=== PATIENT | male | born 1995 | race Caucasian/White ===

== ENCOUNTER 2022-11-18 18:34 | Emergency (ER) | payer MEDICAID, SELFPAY ==
[2022-11-18 18:36] VITALS: BP 119/74; PULSE 67; RESP 20; TEMP 36.8; O2SAT 96; BMI 29.3
--- NOTE | 2022-11-18 18:46 | XR_ITS ---
The [place] [id number] Patient Name: LISA HANEY MRN: [id number] date: 1995 Sex: M Assigned Patient Location: ER Current Patient Location: Accession/Order Number: [id number] Exam Date: 11/18/2022 18:55 Report Date: 11/18/2022 20:01 At the request of: DEVONTE FRY Procedure: XR shoulder LT min 2V STUDY: XR shoulder LT min 2V, [id number] HISTORY: pain history of surgery and recurrent dislocation COMPARISON: Left shoulder x-ray 08/15/2022. FINDINGS/IMPRESSION: Similar flattening of the superolateral aspect of the humeral head most compatible with chronic Hill-Sachs fracture. No new osseous abnormality. The shoulder is in joint. No significant osseous degenerative changes. Electronically authenticated by: JAD BROOKS Date: 11/18/2022 20:01
--- NOTE | 2022-11-18 18:52 | ED_ITS ---
HPI - Extremity Injury (Upper) General Chief Complaint: Extremity Injury, Upper Stated Complaint: LT SHOULDER INJURY Time Seen by Provider: 11/18/22 18:46 Source: patient Mode of arrival: walk-in Limitations: no limitations History of Present Illness HPI narrative: Patient is a 27-year-old male presents to the Emergency Room with concerns of left shoulder pain. He has a history of shoulder surgery for recurrent d islocations back in January 2022. Dr. Siegel in [place]. Patient states he occasionally has seizures during his sleep and when he wakes up he will experience shoulder pain and dislocation. Patient states he has not had one since he has had corrective surgery on both shoulders. He awoke from sleep today with left shoulder pain and presumed that he may have had a seizure. Patient states he has taken his medication as prescribed. He denies striking his arm on any hard objects that would've been in his bed are close by the room. Patient noted soreness and painful range of motion prompting visit today with his prior history of multiple dislocations. Patient denies any nausea or vomiting, denies headache. Ambulance with a brisk steady gait and has no other concerns. Other Extremity Injury: Left: shoulder Place: Reports home Related Data Home Medications Medication Instructions Recorded Confirmed lamotrigine 200 mg tablet 400 mg PO Q12H 11/18/22 11/18/22 (Lamictal) Allergies Allergy/AdvReac Type Severity Reaction Status Date / Time No Known Drug Allergies Allergy Verified 11/18/22 18:38 Review of Systems ROS Constitutional Denies: fever or chills Eyes Denies: change in vision or blurry vision Ears, nose, mouth, and throat Denies: neck pain Cardiovascular Denies: chest pain or palpitations Respiratory Denies: shortness of breath or cough Gastrointestinal Denies: abdominal pain, nausea or vomiting Musculoskeletal Denies: back pain Integumentary/Breast Denies: rash Neurological Denies: headache Psychiatric Denies: anxiety Exam Narrative Exam Narrative: Nurses notes and vital signs reviewed and patient is not hypoxic. General: The patient appears well and in no apparent distress. Patient is resting comfortably on cart. Skin: Warm, dry, no pallor noted. Postoperative scars still left shoulder appear unremarkable. Head: Normocephalic, atraumatic Neck: Supple, trachea mid-line, no tenderness, no lymphadenopathy Eye: Pupils are equal, round and reactive to light, EOMI Ears, Nose, Mouth, and Throat: TM are clear, normal light reflex, oral mucosa is moist, no posterior oropharynx erythema or hypertrophy, uvula is mid-line Cardiovascular: Regular Rate and Rhythm Respiratory: Patient is in no distress, no accessory muscle use, lungs are clear to auscultation, no wheezing, rales or rhonchi. Chest Wall: no tenderness Back: non-tender, no CVA tenderness Musculoskeletal: normal ROM, no tenderness, no swelling, left shoulder specifically is with generalized soreness on palpation of the proximal humerus. No palpable deformity. Passive range of motion noted for pain with external rotation, deltoid strength is five over five with symmetric sensation bilaterally. Patient is able to touch his opposite shoulder without difficulty. GI: Normal bowel sounds, no tenderness to palpation, no masses appreciated. No rebound, guarding, or rigidity noted. Neurological: A&O x4 Psychiatric: Cooperative Constitutional Vital Signs - 24 hr 11/18/22 18:36 Temperature 98.2 F Pulse Rate [Monitor] 67 Respiratory Rate 20 Blood Pressure [Right Arm] 119/74 Pulse Oximetry 96 Oxygen Delivery Method Room Air Course Vital Signs Vital signs: Vital Signs Temperature 98.2 F 11/18/22 18:36 Pulse Rate 67 11/18/22 18:36 Respiratory Rate 20 11/18/22 18:36 Blood Pressure 119/74 11/18/22 18:36 Pulse Oximetry 96 11/18/22 18:36 Oxygen Delivery Method Room Air 11/18/22 18:36 Temperature 98.2 F 11/18/22 18:36 Pulse Rate 67 11/18/22 18:36 Respiratory Rate 20 11/18/22 18:36 Blood Pressure 119/74 11/18/22 18:36 Pulse Oximetry 96 11/18/22 18:36 Oxygen Delivery Method Room Air 11/18/22 18:36 MDM - Extremity Injury (Upper) MDM Narrative Medical decision making narrative: Patient had ice packs applied, patient was surprised at bedside with the ability for his range of motion states he may have slept on her shoulder on instead of dislocated it. Patient eleven x-ray performed, Motrin given for pain and ice packs applied. Recommend follow-up with his orthopedist for reevaluation given prior surgery. We discussed a seizure history, patient reports his compliance with his medication and seizure activity was not witnessed. Patient states he assumed as he woke up with shoulder pain given his past history. X-rays reviewed at the bedside, no evidence of dislocation, remote Hill-Sachs deformities noted from prior history of dislocation. The patient is to followup with Dr. Siegel in 3-5 days ( orthopedics) or to return to the emergency department should any of the signs or symptoms worsen or new symptoms develop. Patient had questions answered. The patient agrees with the following Diagnosis and Treatment plan and the patient will be discharged home. Discharge Plan Discharge Chief Complaint: Extremity Injury, Upper Clinical Impression: Acute pain of left shoulder Patient Disposition: Home, Self-Care Time of Disposition Decision: 19:14 Condition: Good Prescriptions / Home Meds: No Action lamotrigine [Lamictal] 200 mg tablet 400 mg PO Q12H Instructions: Shoulder Pain (ED) Additional Instructions: Please call Dr. Siegel for follow up this week: [facility] Orthopedics and Sports Medicine Stand Alone Forms: Portal Instructions Referrals: JESSE SMILEY [Primary Care Provider] - 1 week
[2022-11-18] MEDS: IBUPROFEN 600 MG TABLET PO (19:12)
== END 2022-11-18 19:31 | disposition home or self-care (01) ==
PROVIDERS: Emergency Provider Emergency Medicine; PCP Family Medicine
DX: M25.512 Pain in left shoulder (principal)
CPT/HCPCS: 73030; 99283

== ENCOUNTER 2023-01-17 14:55 | Emergency (ER) | payer MEDICAID, SELFPAY ==
[2023-01-17 15:11] VITALS: BP 124/80; PULSE 71; RESP 14; TEMP 36.7; O2SAT 97; BMI 29.8
--- NOTE | 2023-01-17 15:26 | XR_ITS ---
The [address] [address] Patient Name: LISA HANEY MRN: [id number] date: 1995 Sex: M Assigned Patient Location: ER Current Patient Location: ED.MAIN Accession/Order Number: [id number] Exam Date: 01/17/2023 15:34 Report Date: 01/17/2023 16:00 At the request of: JEREMY BRADSHAW Procedure: XR shoulder RT min 2V XR shoulder RT min 2V, 01/17/2023 3:34 PM EDT, OH001 INDICATION: right shoulder pain COMPARISON: Radiographs from 09/12/2020 TECHNIQUE: 3 images are submitted. FINDINGS: Internal fixation along the inferior aspect of the glenoid is again noted. The bones appear well mineralized. No acute fracture or subluxation is identified. Subchondral cystic changes are again seen along the superior aspect of the glenoid. Hill-Sachs deformity is again seen along the superolateral aspect of the humeral head. The visualized soft tissues appear unremarkable. XR/XR shoulder RT min 2V IMPRESSION: No acute traumatic abnormality or malalignment. No significant interval change is seen. Electronically authenticated by: CARL JEAN Date: 01/17/2023 16:00
--- NOTE | 2023-01-17 15:51 | ED_ITS ---
HPI - General Adult General Chief complaint: Extremity Injury, Upper Stated complaint: R ARM PAIN Time Seen by Provider: 01/17/23 14:58 Source: patient Mode of arrival: walk-in History of Present Illness HPI narrative: patient was lifting items when he felt 3 pops and pain in the right shoulder - he cannot remember the position of his right arm when he felt the pain. He has been taking ibuprofen for the pain. It feels better now than it did after the pops but he is concerned about the pain lingering. No functional deficit noted. He previously had surgery with Dr Solis at [facility] and had rotator cuff repair. Related Data Home Medications Medication Instructions Recorded Confirmed lamotrigine 200 mg tablet 400 mg PO Q12H 11/18/22 11/18/22 (Lamictal) Previous Rx's Medication Instructions Recorded nabumetone 750 mg tablet 750 mg PO BID PRN pain #20 tabs 01/17/23 Allergies Allergy/AdvReac Type Severity Reaction Status Date / Time No Known Drug Allergies Allergy Verified 11/18/22 18:38 Exam Narrative Exam Narrative: Nurses notes and vital signs reviewed and patient is not hypoxic. afebrile General: Well-appearing and in no apparent distress. Skin: Warm, dry, no pallor noted. Head: Normocephalic, atraumatic. Cardiovascular: normal peripheral perfusion Respiratory: No accessory muscle use or respiratory distress. Back: No midline thoracic vertebral tenderness. Musculoskeletal: right shoulder tenderness at the superior and anterior aspect near his incision scar. He has full and normal ROM with expected strength in right shoulder. no humerus or elbow tenderness, no upper extremity edema/swelling Neurological: A&O x4. No cranial nerve dysfunction observed. No truncal ataxia. Moves all extremities. Sensation intact. Psychiatric: Cooperative and interactive. Normal mood and affect. Constitutional Vital Signs, click to edit/add: Last Vital Signs Temp 98.0 F 01/17/23 15:11 Pulse 71 01/17/23 15:11 Resp 14 01/17/23 15:11 BP 124/80 01/17/23 15:11 Pulse Ox 97 01/17/23 15:11 O2 Del Method Room Air 01/17/23 15:19 Course Vital Signs Vital signs: Vital Signs Temperature 98.0 F 01/17/23 15:11 Pulse Rate 71 01/17/23 15:11 Respiratory Rate 14 01/17/23 15:11 Blood Pressure 124/80 01/17/23 15:11 Pulse Oximetry 97 01/17/23 15:11 Oxygen Delivery Method Room Air 01/17/23 15:11 Temperature 98.0 F 01/17/23 15:11 Pulse Rate 71 01/17/23 15:11 Respiratory Rate 14 01/17/23 15:11 Blood Pressure 124/80 01/17/23 15:11 Pulse Oximetry 97 01/17/23 15:11 Oxygen Delivery Method Room Air 01/17/23 15:19 Medical Decision Making MDM Narrative Medical decision making narrative: no acute fracture dislocation on x-rays of the right shoulder. The patient was informed of results and discharged home with prescription for Relafen for pain. Imaging Data xr shoulder: My impression: no acute fracture dislocation of the right shoulder Discharge Plan Discharge Chief Complaint: Extremity Injury, Upper Clinical Impression: Acute pain of right shoulder, Right shoulder strain Patient Disposition: Home, Self-Care Time of Disposition Decision: 15:56 Prescriptions / Home Meds: New nabumetone 750 mg tablet 750 mg PO BID PRN (Reason: pain) Qty: 20 0RF No Action lamotrigine [Lamictal] 200 mg tablet 400 mg PO Q12H Instructions: Shoulder Sprain (ED) Stand Alone Forms: Portal Instructions Referrals: JESSE SMILEY [Primary Care Provider] - 1 week Cheikh Waldrop MD [Physician] - 1 week
== END 2023-01-17 16:12 | disposition home or self-care (01) ==
PROVIDERS: Emergency Provider Emergency Medicine; PCP Family Medicine
DX: S46.911A Strain of unspecified muscle, fascia and tendon at shoulder and upper arm level, right arm, initial encounter (principal); M25.512 Pain in left shoulder; X50.9XXA Other and unspecified overexertion or strenuous movements or postures, initial encounter; Z79.899 Other long term (current) drug therapy
CPT/HCPCS: 73030; 99283

== ENCOUNTER 2023-02-24 21:37 | Emergency (ER) | payer MEDICAID, SELFPAY ==
[2023-02-24 21:40] VITALS: BP 111/80; PULSE 111; RESP 16; TEMP 36.5; O2SAT 95; BMI 30.7
--- NOTE | 2023-02-24 21:45 | XR_ITS ---
The [address] [address] Patient Name: LISA HANEY MRN: [id number] date: 1995 Sex: M Assigned Patient Location: ER Current Patient Location: Accession/Order Number: [id number] Exam Date: 02/24/2023 21:50 Report Date: 02/24/2023 22:36 At the request of: ADOLPH KUNZ Procedure: XR shoulder LT 1V EXAM: XR shoulder LT 1V HISTORY: pain; shoulder dislocated tonight but self reduced COMPARISON: [Shoulder x-ray dated 11/18/2021. TECHNIQUE: Single frontal view of the left shoulder are submitted for review. FINDINGS: No obvious acute fracture is seen. Joint alignment appears normal on this single frontal view of the left shoulder. Mild widening of the acromiohumeral humeral interval may be seen, which may represent a joint effusion. The left acromioclavicular joint appears intact and normally aligned. XR/XR shoulder LT 1V IMPRESSION: No obvious acute fracture is seen. Joint alignment appears normal on this single frontal view of the left shoulder. Mild widening of the acromiohumeral humeral interval may be seen, which may represent a joint effusion. Electronically authenticated by: MOIZ GARCIA Date: 02/24/2023 22:36
--- NOTE | 2023-02-24 21:46 | ED.UPPEXIN1 ---
HPI - Extremity Injury (Upper) General Chief Complaint: Extremity Injury, Upper Stated Complaint: Shoulder Dislocation, Left Time Seen by Provider: 02/24/23 21:43 Source: patient Mode of arrival: walk-in History of Present Illness HPI narrative: 27-year-old male presents for left shoulder pain. He states he rolled over in his shoulder dislocated but then it popped back in place. He has dislocated this shoulder several times and sees an orthopedist. No weakness or numbness. The pain is moderate. Related Data Home Medications Medication Instructions Recorded Confirmed lamotrigine 200 mg tablet 400 mg PO Q12H 11/18/22 11/18/22 (Lamictal) Previous Rx's Medication Instructions Recorded nabumetone 750 mg tablet 750 mg PO BID PRN pain #20 tabs 01/17/23 Allergies Allergy/AdvReac Type Severity Reaction Status Date / Time No Known Drug Allergies Allergy Verified 11/18/22 18:38 Review of Systems ROS Narrative A ten point review of systems is negative except as noted above. PFSH PFSH Social History Smoking status: Former smoker Exam Narrative Exam Narrative: Nurses note and vital signs reviewed and patient is not hypoxic. General: The patient appears well and in no apparent distress. Patient is resting comfortably on cart. Skin: Warm, dry, no pallor noted. There is no rash noted. Head: Normocephalic, atraumatic Eye: Normal conjunctiva, no drainage Ears, Nose, Mouth, and Throat: oral mucosa is moist. Nares patent. Cardiovascular: Regular Rate and Rhythm Respiratory: Patient is in no distress, no accessory muscle use, lungs are clear to auscultation, no wheezing, rales or rhonchi Back: non-tender GI: nontender Musculoskeletal: no deformity of the left shoulder. Left elbow and wrist are nontender. Radial pulse 2+ and fingers have full range of motion. Neurological: A&O, normal speech Psychiatric: Cooperative Constitutional Vital Signs, click to edit/add: Last Vital Signs Temp 97.7 F 02/24/23 21:40 Pulse 111 H 02/24/23 21:40 Resp 16 02/24/23 21:40 BP 111/80 02/24/23 21:40 Pulse Ox 95 02/24/23 21:40 O2 Del Method Room Air 02/24/23 21:40 Course Vital Signs Vital signs: Vital Signs Temperature 97.7 F 10/01/23 21:40 Pulse Rate 111 H 02/24/23 21:40 Respiratory Rate 16 02/24/23 21:40 Blood Pressure 111/80 02/24/23 21:40 Pulse Oximetry 95 02/24/23 21:40 Oxygen Delivery Method Room Air 02/24/23 21:40 Temperature 97.7 F 02/24/23 21:40 Pulse Rate 111 H 02/24/23 21:40 Respiratory Rate 16 02/24/23 21:40 Blood Pressure 111/80 02/24/23 21:40 Pulse Oximetry 95 02/24/23 21:40 Oxygen Delivery Method Room Air 02/24/23 21:40 MDM - Extremity Injury (Upper) MDM Narrative Medical decision making narrative: x-ray of the shoulder on my interpretation shows no acute findings, no dislocation. Sling applied, application checked by me and found to be appropriate, he is neurovascularly intact and he'll call his orthopedist in the morning. Treatment diagnosis and follow-up were discussed with the patient. Differential Diagnosis Differential diagnosis: Likely other (shoulder sprain, fracture, dislocation) Imaging Data left shoulder x-ray: My impression: no acute findings Discharge Plan Discharge Chief Complaint: Extremity Injury, Upper Clinical Impression: Acute pain of left shoulder Patient Disposition: Home, Self-Care Time of Disposition Decision: 22:07 Mode of Transportation: Private Vehicle Prescriptions / Home Meds: No Action lamotrigine [Lamictal] 200 mg tablet 400 mg PO Q12H nabumetone 750 mg tablet 750 mg PO BID PRN (Reason: pain) Qty: 20 0RF Instructions: Shoulder Pain (ED) Additional Instructions: call your orthopedist in the morning Stand Alone Forms: Portal Instructions Referrals: JESSE SMILEY [Primary Care Provider] - 1 week
--- NOTE | 2023-02-24 22:18 | PC.NURSE ---
Shoulder popped back in on way back t cart. PMS intact. Placed in sling for comfort.
== END 2023-02-24 22:32 | disposition home or self-care (01) ==
PROVIDERS: Emergency Provider Emergency Medicine; PCP Family Medicine
DX: M25.512 Pain in left shoulder (principal); Z79.899 Other long term (current) drug therapy; Z87.891 Personal history of nicotine dependence
CPT/HCPCS: 73020; 99283

== ENCOUNTER 2023-02-25 11:36 | Emergency (ER) | payer MEDICAID, SELFPAY ==
[2023-02-25 11:49] VITALS: BP 113/81; PULSE 88; RESP 18; TEMP 36.1; O2SAT 96; BMI 30.7
--- NOTE | 2023-02-25 12:49 | XR_ITS ---
The [address] [address] Patient Name: LISA HANEY MRN: [id number] date: 1995 Sex: M Assigned Patient Location: ER Current Patient Location: ER Accession/Order Number: [id number] Exam Date: 02/25/2023 12:57 Report Date: 02/25/2023 13:25 At the request of: CHALINO LU Procedure: XR shoulder RT min 2V PROCEDURE: XR shoulder RT 1V COMPARISON: 01/17/2023 HISTORY: shoulder FINDINGS: BONES:No acute fracture or dislocation. 2 screws inferior glenoid, stable. SOFT TISSUES:Negative. No visible soft tissue swelling. EFFUSION:None visible. OTHER: Limited single frontal portable projection XR/XR shoulder RT min 2V IMPRESSION: Limited single projection, no acute abnormality Electronically authenticated by: UCHE SANABRIA Date: 02/25/2023 13:25
--- NOTE | 2023-02-25 13:01 | ED_ITS ---
HPI - General Adult General Chief complaint: Extremity Injury, Upper Stated complaint: right arm pain, non-traumatic Time Seen by Provider: 02/25/23 12:35 Source: patient Mode of arrival: walk-in History of Present Illness HPI narrative: Patient is a 27-year-old male who is presenting to the Emergency Room with chief complaint right shoulder pain. Patient was here last evening, was seen and evaluated by evening physician Dr Arevalo. Patient was complaining of a shoulder pain last night, he is concerned about possible dislocation after seizure. Patient has bilateral history of shoulder dislocations, also has had a previous right shoulder surgery. Patient was not having the right shoulder pain last evening like he is today. Patient stated he went home last evening, woke up this morning was having right shoulder pain, not left shoulder pain. Patient had a left shoulder x-ray last evening. Patient has an appointment with his orthopedic surgeon this , Dr. Frey. Patient did not take Tylenol Motrin for his pain this morning. . All systems are negative except as noted/marked. All systems reviewed and otherwise negative. . Nurses note and vital signs reviewed and patient is not hypoxic. General: The patient appears well and in no apparent distress. Patient is resting comfortably on cart. Patient is not toxic, lethargic, or listless Skin: Warm, dry, no pallor noted. There is no rash noted. No petechiae, purp ura. Head: Normocephalic, atraumatic Eye: Normal conjunctiva, no drainage, EOMI. PERRL Ears, Nose, Mouth, and Throat: oral mucosa is moist. Nares patent. Mouth without vesicles. Cardiovascular: Regular Rate and Rhythm, no murmur, gallop, rub Respiratory: Patient is in no distress, no accessory muscle use, lungs are clear to auscultation, no wheezing, rales or rhonchi Back: non-tender, no CVA tenderness bilaterally to percussion. No CT LS midline pain GI: soft, no tenderness to palpation, no masses appreciated. No rebound, guarding, or rigidity noted. No flank pain bilateral, No distention Musculoskeletal: Patient has full range of motion of all of the extremities Except to the right shoulder. Patient does have flexion and extension of the right shoulder with moderate pain, patient was abduct right shoulder up to approximately 90 degrees with moderate pain. Patient does not appear to have any sulcus sign, no obvious signs of fracture dislocation, x-ray will be done. Patient is guarded with range of motion of right shoulder secondary to pain. no motor, sensory, or focal neurological deficits Neurological: A&O x3, normal speech Psychiatric: Cooperative Related Data Home Medications Medication Instructions Recorded Confirmed lamotrigine 200 mg tablet 400 mg PO Q12H 11/18/22 02/25/23 (Lamictal) Allergies Allergy/AdvReac Type Severity Reaction Status Date / Time No Known Drug Allergies Allergy Verified 02/25/23 11:52 PFSH PFSH Social History Smoking status: Former smoker Exam Constitutional Vital Signs, click to edit/add: Last Vital Signs Temp 97.0 F L 02/25/23 11:49 Pulse 88 02/25/23 13:07 Resp 18 02/25/23 13:07 BP 118/64 02/25/23 13:07 Pulse Ox 98 02/25/23 13:07 O2 Del Method Room Air 02/25/23 11:49 Course Vital Signs Vital signs: Vital Signs Temperature 97.0 F L 02/25/23 11:49 Pulse Rate 88 02/25/23 11:49 Respiratory Rate 18 02/25/23 11:49 Blood Pressure 113/81 02/25/23 11:49 Pulse Oximetry 96 02/25/23 11:49 Oxygen Delivery Method Room Air 02/25/23 11:49 Temperature 97.0 F L 02/25/23 11:49 Pulse Rate 88 02/25/23 13:07 Respiratory Rate 18 02/25/23 13:07 Blood Pressure 118/64 02/25/23 13:07 Pulse Oximetry 98 02/25/23 13:07 Oxygen Delivery Method Room Air 02/25/23 11:49 Medical Decision Making [facility] Narrative Medical decision making narrative: Patient initially had 1 view x-ray that showed no obvious fracture, dislocation, screws are intact. Patient had a 2nd one view x-ray, lab review that. No signs of dislocation or acute abnormality. Patient had ice applied. Patient did not take any Motrin or Tylenol home because he did not think that would work. Patient works at [employer], he did not go to work last night or tonight. Patient is not going to be given off work, he was given a work note for restrictions until he follows of his orthopedic surgeon on in Dr. Tk Lorenzo. Patient was instructed to continue using ice 20 minutes on, 20 minutes off. No indication for a sling. Patient can follow up with PCP as needed as well, no questions at discharge. Discharge Plan Discharge Chief Complaint: Extremity Injury, Upper Clinical Impression: Pain in right shoulder Patient Disposition: Home, Self-Care Time of Disposition Decision: 13:24 Condition: Fair Prescriptions / Home Meds: No Action lamotrigine [Lamictal] 200 mg tablet 400 mg PO Q12H Instructions: P.R.I.C.E. Treatment (ED), Shoulder Pain (ED) Stand Alone Forms: Work/School Release, Portal Instructions Referrals: JESSE SMILEY [Primary Care Provider] - 1 week
[2023-02-25 13:07] VITALS: BP 118/64; PULSE 88; RESP 18; O2SAT 98
[2023-02-25 13:35] VITALS: BP 126/88; PULSE 89; RESP 18; O2SAT 98
== END 2023-02-25 13:37 | disposition home or self-care (01) ==
PROVIDERS: Emergency Provider Emergency Medicine; PCP Family Medicine
DX: M25.511 Pain in right shoulder (principal); Z79.899 Other long term (current) drug therapy; Z87.891 Personal history of nicotine dependence
CPT/HCPCS: 73030; 99283

== ENCOUNTER 2023-02-26 17:17 | Emergency (ER) | payer MEDICAID, SELFPAY ==
[2023-02-26 17:21] VITALS: BP 89/68; PULSE 92; RESP 18; TEMP 36.8; O2SAT 95; BMI 30.7
--- NOTE | 2023-02-26 17:24 | XR_ITS ---
The [address] [address] Patient Name: LISA HANEY MRN: [id number] date: 1995 Sex: M Assigned Patient Location: ER Current Patient Location: ER Accession/Order Number: [id number] Exam Date: 02/26/2023 17:35 Report Date: 02/26/2023 17:52 At the request of: ADOLPH KUNZ Procedure: XR shoulder LT 1V EXAM: XR shoulder LT 1V HISTORY: pain, hx of dislocations COMPARISON: X-rays 02/24/2023 TECHNIQUE: Single view FINDINGS: IMPRESSION: Again demonstrated is the displaced intra-articular fragment lying within the anterior axillary pouch. Speed-Sachs fracture of the humeral head. No visualized additional abnormality. Electronically authenticated by: UCHE TAO Date: 02/26/2023 17:52
--- NOTE | 2023-02-26 17:26 | ED_ITS ---
HPI - Extremity Injury (Upper) General Chief Complaint: Extremity Injury, Upper Stated Complaint: Shoulder Injury Time Seen by Provider: 02/26/23 17:18 Source: patient Mode of arrival: walk-in Limitations: no limitations History of Present Illness HPI narrative: 27-year-old male presents for left shoulder pain. He states he was sleeping and it popped. He was seen here yesterday for the same issue in the right shoulder and the day before yesterday in the left shoulder. Both previous x-rays are negative. He reports that he has a history of dislocations and he has an appointment with his orthopedist in two days. The pain is moderate and worse if he tries to move his arm. There was no trauma such as a fall. Related Data Home Medications Medication Instructions Recorded Confirmed lamotrigine 200 mg tablet 400 mg PO Q12H 11/18/22 02/25/23 (Lamictal) Allergies Allergy/AdvReac Type Severity Reaction Status Date / Time No Known Drug Allergies Allergy Verified 02/25/23 11:52 Review of Systems ROS Narrative A ten point review of systems is negative except as noted above. PFSH PFSH Social History Smoking status: Never smoker Exam Narrative Exam Narrative: Nurses note and vital signs reviewed and patient is not hypoxic. General: The patient appears in no apparent distress. Patient is resting comfortably on cart. Skin: Warm, dry, no pallor noted. There is no rash noted. Head: Normocephalic, atraumatic Eye: Normal conjunctiva, no drainage Ears, Nose, Mouth, and Throat: oral mucosa is moist. Nares patent. Cardiovascular: Regular Rate and Rhythm Respiratory: Patient is in no distress, no accessory muscle use, lungs are clear to auscultation, no wheezing, rales or rhonchi Back: non-tender GI: soft and nontender Musculoskeletal: no obvious deformity in the left shoulder. Skin intact. Left elbow and left wrist nontender. Radial pulse 2+ and fingers have full range of motion. Sensation intact over the deltoid area. Neurological: A&O, normal speech Psychiatric: Cooperative Constitutional Vital Signs, click to edit/add: Last Vital Signs Temp 98.2 F 02/26/23 17:21 Pulse 92 H 02/26/23 17:21 Resp 18 02/26/23 17:21 BP 89/68 02/26/23 17:21 Pulse Ox 95 02/26/23 17:21 O2 Del Method Room Air 02/26/23 17:21 Course Vital Signs Vital signs: Vital Signs Temperature 98.2 F 02/26/23 17:21 Pulse Rate 92 H 02/26/23 17:21 Respiratory Rate 18 02/26/23 17:21 Blood Pressure 89/68 02/26/23 17:21 Pulse Oximetry 95 02/26/23 17:21 Oxygen Delivery Method Room Air 02/26/23 17:21 Temperature 98.2 F 02/26/23 17:21 Pulse Rate 92 H 02/26/23 17:21 Respiratory Rate 18 02/26/23 17:21 Blood Pressure 89/68 02/26/23 17:21 Pulse Oximetry 95 02/26/23 17:21 Oxygen Delivery Method Room Air 02/26/23 17:21 MDM - Extremity Injury (Upper) MDM Narrative Medical decision making narrative: x-ray of the shoulder per radiologist shows no dislocation and it does show chronic findings. Sling applied. Application checked by me and found to be appropriate, he is neurovascularly intact. He was instructed to wear the sling until he sees his orthopedist the day after tomorrow and he's put on limited work duty. Treatment diagnosis and follow-up were discussed with the patient. Differential Diagnosis Differential diagnosis: Likely other (shoulder strain, shoulder dislocation, shoulder fracture) Imaging Data left shoulder x-ray: Radiologist's impression: Procedure: XR shoulder LT 1V EXAM: XR shoulder LT 1V HISTORY: pain, hx of dislocations COMPARISON: X-rays 02/24/2023 TECHNIQUE: Single view FINDINGS: IMPRESSION: Again demonstrated is the displaced intra-articular fragment lying within the anterior axillary pouch. [place]-Sachs fracture of the humeral head. No visualized additional abnormality. Electronically authenticated by: UCHE TAO Date: 02/26/2023 17:52 Discharge Plan Discharge Chief Complaint: Extremity Injury, Upper Clinical Impression: Acute pain of left shoulder Patient Disposition: Home, Self-Care Time of Disposition Decision: 17:59 Condition: Good Mode of Transportation: Private Vehicle Prescriptions / Home Meds: No Action lamotrigine [Lamictal] 200 mg tablet 400 mg PO Q12H Instructions: Shoulder Pain (ED) Additional Instructions: See your orthopedist at the appointment in two days. Wear the sling until you see him. Stand Alone Forms: Portal Instructions Referrals: JESSE SMILEY [Primary Care Provider] - 1 week
--- NOTE | 2023-02-26 17:30 | PC.NURSE ---
pt presents to ED because patient states that he was sleeping and around 2:30pm and he had a seizure in his sleep and believes he dislocated left shoulder. pt states it is too painful to move his left arm. pt does have history of seizures and takes lamictal for his seizures.
--- NOTE | 2023-02-26 17:44 | XR_ITS ---
The [address] [address] Patient Name: LISA HANEY MRN: [id number] date: 1995 Sex: M Assigned Patient Location: ER Current Patient Location: Accession/Order Number: [id number] Exam Date: 02/26/2023 17:48 Report Date: 02/26/2023 18:16 At the request of: ADOLPH KUNZ Procedure: XR shoulder LT 1V EXAM: XR shoulder LT 1V HISTORY: pain COMPARISON: X-rays at 5:34 PM. TECHNIQUE: Single view FINDINGS: IMPRESSION: This is an additional sequence in addition to the single image performed earlier. The patient should not be charged for an additional study. No visualized acute fracture, dislocation or subluxation. Electronically authenticated by: UCHE TAO Date: 02/26/2023 18:16
== END 2023-02-26 18:15 | disposition home or self-care (01) ==
PROVIDERS: Emergency Provider Emergency Medicine; PCP Family Medicine
DX: M25.512 Pain in left shoulder (principal); Z79.899 Other long term (current) drug therapy
CPT/HCPCS: 73020; 99283

== ENCOUNTER 2023-03-07 20:16 | Emergency (ER) | payer MEDICAID, SELFPAY ==
[2023-03-07 20:22] VITALS: BP 124/81; PULSE 74; RESP 18; TEMP 36.6; O2SAT 99; BMI 30.7
--- NOTE | 2023-03-07 21:00 | US_ITS ---
The [address] [address] Patient Name: LISA HANEY MRN: [id number] date: 1995 Sex: M Assigned Patient Location: ER Current Patient Location: ER Accession/Order Number: [id number] Exam Date: 03/07/2023 21:10 Report Date: 03/07/2023 21:46 At the request of: ALEX PARKS Procedure: US scrotum EXAM: Scrotal ultrasound CLINICAL INDICATION: torsion. TECHNIQUE: The scrotal ultrasound was obtained with grayscale and color Doppler imaging as well as waveform analysis. FINDINGS: Testicles: Bilateral testicles are homogenous in echotexture. No mass or microlithiasis evident. The right testicle measures 4.1 x 3.1 x 2.1 cm. The left testicle measures 3.8 x 3.0 x 2.3 cm. Extratesticular findings: No hydrocele on either side. No epididymal enlargement or mass. 9 mm left epididymal cyst. Testicular doppler: Symmetric color flow is visualized in both testicles. Arterial and venous waveforms are detected bilaterally. No asymmetric epididymal hyperemia. Asymmetry in the pampiniform plexus veins, larger on the right with a borderline right varicocele. US/US scrotum IMPRESSION: 1. No evidence of testicular torsion or epididymoorchitis. 2. Borderline right varicocele. An isolated right-sided varicocele can occasionally indicate retroperitoneal mass or pathology. Consider follow-up ultrasound to confirm this finding and if persistent then consider further evaluation with a abdomen pelvis CT or MRI. Electronically authenticated by: AUGUSTUS LOVELACE Date: 03/07/2023 21:46
--- NOTE | 2023-03-07 22:23 | PC.NURSE ---
patient having pain in left testicle, pain is constant but intermittently worsens. patient is having nausea and vomiting.
[2023-03-07 22:24] VITALS: BP 131/88; RESP 16; O2SAT 96
[2023-03-07] MEDS: ONDANSETRON 4 MG RAPDIS TABLET SL (23:40)
[2023-03-07] MEDS: KETOROLAC TROMETHAMINE 60 MG/2 ML VIAL IM (23:43)
[2023-03-07 23:47] LABS: Basophils Absolute Auto 0.1 10^3/uL (0.0-0.1); Basophils Percent Auto 0.8 % (0.2-2.0); Eosinophils Absolute Auto 0.1 10^3/uL (0.0-0.7); Eosinophils Percent Auto 0.7 % (0.9-7.0); Hematocrit 48.9 % (42.0-54.0); Immature Granulocytes Abs Auto 0.08 10^3/uL (0.00-0.03); Immature Granulocytes Pct Auto 0.5 % (0.0-0.5); Lymphocytes Absolute Auto 1.4 10^3/uL (1.2-3.8); Lymphocytes Percent Auto 9.4 % (20.5-60.0); Mean Corpuscular HGB Conc 34.8 g/dL (29.9-35.2); Mean Corpuscular Hemoglobin 30.6 pg (25.9-34.0); Mean Corpuscular Volume 87.9 fL (80.0-94.0); Mean Platelet Volume 10.3 fL (9.5-13.5); Monocytes Absolute Auto 0.6 10^3/uL (0.3-0.8); Neutrophils Absolute Auto 12.8 10^3/uL (1.4-6.5); Neutrophils Percent Auto 84.6 % (43.0-75.0); Platelet Count 270 10^3/uL (150-450); Red Blood Count 5.56 10^6/uL (4.70-6.10); Red Cell Distribution Width 12.3 % (11.0-15.0); White Blood Count 15.2 10^3/uL (4.0-11.0)
[2023-03-08 00:03] LABS: Alanine Aminotransferase 35 U/L (16-63); Albumin Globulin Ratio 1.2; Albumin Level 4.7 g/dL (3.4-5.0); Alkaline Phosphatase 123 U/L (46-116); Anion Gap 10.4; Aspartate Amino Transferase 26 U/L (15-37); BUN Creatinine Ratio 12.2; Bilirubin Total 1.1 mg/dL (0.2-1.0); Calcium 9.5 mg/dL (8.5-10.1); Carbon Dioxide 28.7 mmol/L (21.0-32.0); Chloride 103 mmol/L (98-107); Estimated GFR (African America >60 (>=60); Estimated GFR (Non-African Ame >60 (>=60); Globulin 3.9 g/dL; Glucose 154 mg/dL (74-106); Potassium 4.1 mmol/L (3.5-5.1); Sodium 138 mmol/L (136-145); Total Protein 8.6 g/dL (6.4-8.2)
[2023-03-08 01:44] LABS: Bilirubin Urine MODERATE (NEGATIVE); Blood Urine LARGE (NEGATIVE); Clarity Urine CLEAR (CLEAR); Color Urine DK. YELLOW (YELLOW); Glucose Urine UA NEGATIVE (NEGATIVE); Ketones Urine 40 mg/dL (NEGATIVE); Leukocyte Esterase Urine NEGATIVE (NEGATIVE); Nitrite Urine NEGATIVE (NEGATIVE); Protein Urine 100 mg/dL (NEG/TRACE); Specific Gravity Urine 1.025 (1.005-1.025); pH Urine 5.5 (5.0-9.0)
[2023-03-08 01:46] LABS: Urine Microscopic Indicated YES
[2023-03-08 01:53] LABS: Bacteria Urine SMALL #/HPF (NONE SEEN); Cast Seen? NONE SEEN #/LPF (NONE SEEN); Crystals Seen? None Seen #/HPF (None Seen); Mucus Urine SMALL (NONE SEEN); Squamous Epithelial Cell Urine RARE #/LPF (NONE/RARE); Urine Culture Indicated YES
--- NOTE | 2023-03-08 02:30 | CT_ITS ---
The [place] [id number] Patient Name: LISA HANEY MRN: [id number] date: 1995 Sex: M Assigned Patient Location: ER Current Patient Location: ER Accession/Order Number: [id number] Exam Date: 03/08/2023 03:00 Report Date: 03/08/2023 03:49 At the request of: ALEX PARKS Procedure: CT abdomen pelvis wo con EXAM: CT abdomen pelvis wo con HISTORY: pain COMPARISON: 09/15/2020 TECHNIQUE: CT of abdomen and pelvis without intravenous contrast. FINDINGS: Limited evaluation of the viscera/organs and vasculature without intravenous contrast. TUBES AND IMPLANTS: None. LOWER CHEST: Unremarkable ABDOMEN and PELVIS ABDOMINAL WALL AND SOFT TISSUES: Unremarkable. BONES: No suspicious lesions. ARTERIES: Incompletely evaluated. VEINS: Incompletely evaluated. LYMPH NODES: Unremarkable. PERITONEUM/ RETROPERITONEUM: Unremarkable. BOWEL: No obstruction APPENDIX: Unremarkable LIVER: Redemonstration of the left lobe hypodensity which appears similar in size compared to 09/15/2020 GALLBLADDER: Unremarkable. BILE DUCTS: Not dilated SPLEEN: Unremarkable. PANCREAS: Unremarkable. ADRENALS: Unremarkable. KIDNEYS/ URETERS: Bilateral nonobstructing renal calculi, measuring 5 millimeters on the right and 2 millimeters on the left REPRODUCTIVE ORGANS: Unremarkable URINARY BLADDER: Mild diffuse wall thickening CT/CT abdomen pelvis wo con IMPRESSION: Bilateral nonobstructing renal calculi Mild diffuse wall thickening of the bladder concerning for cystitis. Unremarkable appendix. Electronically authenticated by: YASMINE RIVERA Date: 03/08/2023 03:49
[2023-03-08 03:08] LABS: Lactate/Lactic Acid 1.8 mmol/L (0.4-2.0)
[2023-03-08] MEDS: CEFTRIAXONE 1,000 MG in 0.9 % SODIUM CHLORIDE 50 ML 100 MG IV (03:33)
[2023-03-08] MEDS: 0.9 % SODIUM CHLORIDE 1,000 ML 999 ML IV (03:33)
[2023-03-08] MEDS: KETOROLAC TROMETHAMINE 30 MG/ML VIAL IVP (03:35)
[2023-03-08] MEDS: ONDANSETRON PF 4 MG/2 ML VIAL IV (03:35)
--- NOTE | 2023-03-08 04:09 | ED.MALEGU1 ---
HPI - Male Genitourinary General Chief complaint: Urogenital-Male Stated complaint: testicle pain Time Seen by Provider: 03/07/23 21:00 Source: patient Mode of arrival: walk-in Limitations: no limitations History of Present Illness HPI Narrative: patient presents complaining of scrotal pain. states pain of his testicle associated with nausea and vomiting. Started a few hours ago. No fever or dysuria. Does have history of kidney stones. No injury or trauma. no testicle swelling MD Complaint: Reports testicle pain Related Data Home Medications Medication Instructions Recorded Confirmed lamotrigine 200 mg tablet 400 mg PO Q12H 11/18/22 03/07/23 (Lamictal) Allergies Allergy/AdvReac Type Severity Reaction Status Date / Time No Known Drug Allergies Allergy Verified 03/07/23 20:28 Review of Systems ROS Status of ROS 10 or more systems reviewed and unremarkable except as noted in history and below PFSH PFS Social History Smoking status: Never smoker Exam Constitutional Vital Signs, click to edit/add: Last Vital Signs Temp 98 F 03/07/23 20:22 Pulse 74 03/07/23 20:22 Resp 16 03/07/23 22:24 BP 131/88 03/07/23 22:24 Pulse Ox 96 03/07/23 22:24 O2 Del Method Room Air 03/07/23 22:24 Common normals: no apparent distress, average body habitus, oriented x3, healthy appearing, alert and well nourished Eye Common normals: EOMs intact bilaterally and conjunctivae normal Respiratory Common normals: normal respiratory effort, no retractions, no use of accessory muscles and clear to auscultation bilaterally Cardio Common normals: regular rate, regular rhythm, S1 normal heart sound and S2 normal heart sound GI Common normals: Normal to inspection, nondistended, normoactive bowel sounds present, soft to palpation and non-tender Penis: normal penis Scrotum: testes descended bilaterally and cremasteric reflex present Other: no testicle swelling or tenderness Extremity Common normals: normal to inspection and full ROM Neuro Common normals: oriented x3, CN's II-XII intact bilaterally, moves all extremities, no focal motor deficits and no sensory deficits noted Psych Appearance: grossly normal Course Vital Signs Vital signs: Vital Signs Temperature 98 F 03/07/23 20:22 Pulse Rate 74 03/07/23 20:22 Respiratory Rate 18 03/07/23 20:22 Blood Pressure 124/81 03/07/23 20:22 Pulse Oximetry 99 03/07/23 20:22 Oxygen Delivery Method Room Air 03/07/23 20:22 Temperature 98 F 03/07/23 20:22 Pulse Rate 74 03/07/23 20:22 Respiratory Rate 16 03/07/23 22:24 Blood Pressure 131/88 03/07/23 22:24 Pulse Oximetry 96 03/07/23 22:24 Oxygen Delivery Method Room Air 03/07/23 22:24 MDM - Male Genitourinary MDM Narrative Medical decision making narrative: patient presents with testicle pain. exam of testes neg. Ultrasound of testes with no evidence of torsion or epididymitis. His abdominal exam was neg. Patient's pain improved after Toradol but then returned with more vomiting. UA with hematuria and few WBCs. WBC elevated. CT without evidence of ureteral stones but findings c/w cystitis. Patient hydrated and treated again with Toradol and zofran. Also given dose of Rocephin. He is feeling better. Discharged home with Bactrim ds, toradol and pyridium Lab Data Labs: Lab Results 03/07/23 03/07/23 03/08/23 Range/Units 01:40 23:30 02:30 WBC 15.2 H (4.0-11.0) 10^3/uL RBC 5.56 (4.70-6.10) 10^6/uL Hgb 17.0 (14.0-18.0) g/dL Hct 48.9 (42.0-54.0) % MCV 87.9 (80.0-94.0) fL MCH 30.6 (25.9-34.0) pg MCHC 34.8 (29.9-35.2) g/dL RDW 12.3 (11.0-15.0) % Plt Count 270 (150-450) 10^3/uL MPV 10.3 (9.5-13.5) fL Neut % (Auto) 84.6 H (43.0-75.0) % Lymph % (Auto) 9.4 L (20.5-60.0) % [place] % (Auto) 4.0 (1.7-12.0) % Eos % (Auto) 0.7 L (0.9-7.0) % Baso % (Auto) 0.8 (0.2-2.0) % Neut # (Auto) 12.8 H (1.4-6.5) 10^3/uL Lymph # (Auto) 1.4 (1.2-3.8) 10^3/uL [place] # (Auto) 0.6 (0.3-0.8) 10^3/uL Eos # (Auto) 0.1 (0.0-0.7) 10^3/uL Baso # (Auto) 0.1 (0.0-0.1) 10^3/uL Abs Immat Gran (auto) 0.08 H (0.00-0.03) 10^3/uL Imm/Tot Granulo (auto) 0.5 (0.0-0.5) % Sodium 138 (136-145) mmol/L Potassium 4.1 (3.5-5.1) mmol/L Chloride 103 (98-107) mmol/L Carbon Dioxide 28.7 (21.0-32.0) mmol/L Anion Gap 10.4 BUN 15.0 (7.0-18.0) mg/dL Creatinine 1.23 (0.70-1.30) mg/dL Est GFR ( Amer) >60 (>=60) Est GFR (Non-Af Amer) >60 (>=60) BUN/Creatinine Ratio 12.2 Glucose 154 H (74-106) mg/dL Lactate 1.8 (0.4-2.0) mmol/L Calcium 9.5 (8.5-10.1) mg/dL Total Bilirubin 1.1 H (0.2-1.0) mg/dL AST 26 (15-37) U/L ALT 35 (16-63) U/L Alkaline Phosphatase 123 H (46-116) U/L Total Protein 8.6 H (6.4-8.2) g/dL Albumin 4.7 (3.4-5.0) g/dL Globulin 3.9 g/dL Albumin/Globulin Ratio 1.2 Urine Color Dk. yellow (YELLOW) Urine Clarity Clear (CLEAR) Urine pH 5.5 (5.0-9.0) Ur Specific [place] 1.025 (1.005-1.025) Urine Protein 100 A (NEG/TRACE) mg/dL Urine Glucose (UA) Negative (NEGATIVE) mg/dL Urine Ketones 40 A (NEGATIVE) mg/dL Urine Occult Blood Large A (NEGATIVE) Urine Nitrite Negative (NEGATIVE) Urine Bilirubin Moderate A (NEGATIVE) Urine Urobilinogen 1.0 (0.2-1.0) EU/dL Ur Leukocyte Esterase Negative (NEGATIVE) Urine RBC 10-20 A (0-2) #/HPF Urine WBC 2-5 A (NONE SEEN) #/HPF Ur Squamous Epith Cells Rare (NONE/RARE) #/LPF Urine Crystals None seen (None Seen) #/HPF Urine Bacteria Small A (NONE SEEN) #/HPF Urine Casts None seen (NONE SEEN) #/LPF Urine Mucus Small A (NONE SEEN) Ur Culture Indicated? Yes Discharge Plan Discharge Chief Complaint: Urogenital-Male Clinical Impression: Acute cystitis Patient Disposition: Home, Self-Care Prescriptions / Home Meds: No Action lamotrigine [Lamictal] 200 mg tablet 400 mg PO Q12H Instructions: Urinary Tract Infection in Men (ED) Additional Instructions: follow up with your doctor in 2-3 days Stand Alone Forms: Portal Instructions Referrals: JESSE SMILEY [Primary Care Provider] - 1 week
[2023-03-08] MEDS: PHENAZOPYRIDINE 100 MG TABLET 200 MG PO (04:42)
== END 2023-03-08 05:02 | disposition home or self-care (01) ==
PROVIDERS: Emergency Provider Internal Medicine; PCP Family Medicine
DX: N30.00 Acute cystitis without hematuria (principal); Z79.899 Other long term (current) drug therapy
CPT/HCPCS: 36415; 74176; 76870; 80053; 81001; 83605; 85025; 87086; 96365; 96372; 96375; 99285

== ENCOUNTER 2023-03-27 21:34 | Emergency (ER) | payer SELFPAY ==
[2023-03-27] VITALS (8 sets, daily range): BP systolic 128–158; BP diastolic 85–98; PULSE 60–87; RESP 15–30; TEMP 36.7; O2SAT 95–97; BMI 30.7
--- NOTE | 2023-03-27 21:42 | XR_ITS ---
The [address] [address] Patient Name: LISA HANEY MRN: [id number] date: 1995 Sex: M Assigned Patient Location: ER Current Patient Location: ER Accession/Order Number: [id number] Exam Date: 03/27/2023 22:05 Report Date: 03/27/2023 22:21 At the request of: JEANNE PAULSON Procedure: XR shoulder LT min 2V EXAM: XR shoulder LT min 2V HISTORY: The patient is a 27-year-old male with left shoulder pain COMPARISON: 02/26/2023. FINDINGS: The humeral head is anteriorly dislocated relative to the glenoid in a subcoracoid location. No displaced fracture fragments are seen. The acromioclavicular joint is maintained. XR/XR shoulder LT min 2V IMPRESSION: Anterior shoulder dislocation. Electronically authenticated by: MARIA M LE Date: 03/27/2023 22:21
--- NOTE | 2023-03-27 21:54 | PC.NURSE ---
patient has hx of frequent left shoulder dislocation. patient states he was getting dressed for work when he felt his left shoulder pop out. immediately came to ED. Patient will not move left extremity. states at rest pain is bearable and moves to 10 if he tries to move it. left hand is cool and blue to touch. pulses present bilaterally. patient can move fingers.
--- NOTE | 2023-03-27 22:40 | ED.UPPEXIN1 ---
HPI - Extremity Injury (Upper) General Chief Complaint: Extremity Injury, Upper Stated Complaint: LT SHOULDER INJURY Time Seen by Provider: 03/27/23 21:42 Source: patient Mode of arrival: walk-in History of Present Illness HPI narrative: This 27-year-old male who is right-hand dominant has a history of left shoulder dislocations presents for evaluation after he was getting ready for work and his left shoulder popped out. He denies any trauma. He has a visible deformity of the anterior shoulder girdle consistent with an anterior shoulder dislocation. X-ray also shows an anterior shoulder dislocation. He has no numbness or tingling. He requested Ketamine for conscious sedation as this makes him feel less sick after the procedure. Related Data Home Medications Medication Instructions Recorded Confirmed lamotrigine 200 mg tablet 400 mg PO Q12H 11/18/22 03/07/23 (Lamictal) Allergies Allergy/AdvReac Type Severity Reaction Status Date / Time No Known Drug Allergies Allergy Verified 03/07/23 20:28 Review of Systems ROS Status of ROS 10 or more systems reviewed and unremarkable except as noted in history and below [facility] Social History Smoking status: Never smoker Exam Narrative Exam Narrative: Nurses note and vital signs reviewed and patient is not hypoxic. General: Alert, nontoxic male resting currently on the stretcher holding his left arm in his lap, appears uncomfortable but no respiratory distress Skin: Warm, dry, no pallor noted. There is no rash noted. Head: Normocephalic, atraumatic Eye: Normal conjunctiva, no drainage, EOMI. PERRL Ears, Nose, Mouth, and Throat: oral mucosa is moist. Nares patent. Mouth without vesicles. Airway patent Cardiovascular: Regular Rate and Rhythm Respiratory: Patient is in no distress, no accessory muscle use, lungs are clear to auscultation, no wheezing, rales or rhonchi Back: non-tender, no CVA tenderness bilaterally to percussion. GI: Normal bowel sounds, no tenderness to palpation, no masses appreciated. No rebound, guarding, or rigidity noted. Musculoskeletal: Visible deformity to the left anterior shoulder, decreased range of motion, laundry agent strength is intact, pulses are brisk and equal bilaterally Neurological: A&O x4, normal speech Psychiatric: Cooperative Constitutional Vital Signs, click to edit/add: Last Vital Signs Temp 98.0 F 03/27/23 21:40 Pulse 73 11/01/23 23:50 Resp 15 03/27/23 23:50 BP 158/98 H 03/27/23 23:27 Pulse Ox 97 03/27/23 23:50 O2 Del Method Room Air 03/27/23 21:40 Course Vital Signs Vital signs: Vital Signs Temperature 98.0 F 03/27/23 21:40 Pulse Rate 66 03/27/23 21:40 Respiratory Rate 18 03/27/23 21:40 Blood Pressure 131/85 03/27/23 21:40 Pulse Oximetry 96 03/27/23 21:40 Oxygen Delivery Method Room Air 03/27/23 21:40 Temperature 98.0 F 03/27/23 21:40 Pulse Rate 73 03/27/23 23:50 Respiratory Rate 15 03/27/23 23:50 Blood Pressure 158/98 H 03/27/23 23:27 Pulse Oximetry 97 03/27/23 23:50 Oxygen Delivery Method Room Air 03/27/23 21:40 MDM - Extremity Injury (Upper) MDM Narrative Medical decision making narrative: 27-year-old male with a history of recurrent shoulder dislocations of the left side who has had shoulder dislocations on the right side and had surgery in the past presents for evaluation of a nontraumatic shoulder dislocation that occurred while he was getting ready for work this evening. He requested Ketamine for conscious sedation. X-ray shows a anterior left shoulder dislocation. The shoulder was reduced under conscious sedation. Post reduction x-ray shows a reduced dislocation withA stable [place]-Sachs deformity of the humeral head. He was placed into a sling and medicated with ibuprofen at his request. He does have follow-up with outpatient orthopedic surgery Medical Records Medical records narrative: [place] [address] XRay Report Signed Patient: LISA AHNEY MR#: [id number] : 1995 Acct:[id number] Age/Sex: 27 / M ADM Date: 03/27/23 Loc: ER Attending Dr: Ordering Physician: Juan Williamson Date of Service: 03/27/23 Procedure(s): XR shoulder LT 1V Accession Number(s): [id number] cc: JESSE SMILEY ; Juan Williamson~ The [place] [id number] Patient Name: LISA HANEY MRN: [id number] date: 1995 Sex: M Assigned Patient Location: ER Current Patient Location: ER Accession/Order Number: [id number] Exam Date: 03/27/2023 23:40 Report Date: 03/27/2023 23:53 At the request of: JUAN MARKER Procedure: XR shoulder LT 1V EXAM: XR shoulder LT 1V HISTORY: post reduction COMPARISON: 03/27/2023 at 10:00 PM TECHNIQUE: Single AP supine view. FINDINGS: Evidence of successful interval reduction of previously noted glenohumeral dislocation. Likely Hill-Sachs deformity of the left humeral head. The acromioclavicular joint is preserved. XR/XR shoulder LT 1V IMPRESSION: 1. Evidence of successful interval reduction of previously noted glenohumeral dislocation. 2. Likely Hill-Sachs deformity of the left humeral head. Discharge Plan Discharge Chief Complaint: Extremity Injury, Upper Clinical Impression: Dislocation of shoulder region Patient Disposition: Home, Self-Care Time of Disposition Decision: 00:12 Condition: Good Prescriptions / Home Meds: No Action lamotrigine [Lamictal] 200 mg tablet 400 mg PO Q12H Instructions: Shoulder Dislocation (ED), Moderate Sedation (ED) Additional Instructions: Follow-up as soon as possible with your orthopedic surgeon for further evaluation and treatment of your recurrent shoulder dislocations. Stand Alone Forms: Portal Instructions Referrals: JESSE SMILEY [Primary Care Provider] - 1 week Discharge Date/Time: 03/28/23 00:45 Procedures ED Procedure Instructions Procedures Procedures: Procedure note: left anterior shoulder reduction. Pt consented to procedure and IV Ketamine Resp therapy and staff anesthesiologist present Time out called Left shoulder marked with X Ketamine administered and when anesthesia was obtained, traction and countertraction techniques were used to reduce the left shoulder Pt Tolerated procedure well and remained stable without hypoxia Pt placed in left shoulder immobilizer Post reduction shoulder xray....................
[2023-03-27] MEDS: ONDANSETRON PF 4 MG/2 ML VIAL IV (22:59)
[2023-03-27] MEDS: 0.9 % SODIUM CHLORIDE 1,000 ML 1000 ML IV (22:59)
--- NOTE | 2023-03-27 23:15 | XR_ITS ---
The [address] [address] Patient Name: LISA HANEY MRN: [id number] date: 1995 Sex: M Assigned Patient Location: ER Current Patient Location: ER Accession/Order Number: [id number] Exam Date: 03/27/2023 23:40 Report Date: 03/27/2023 23:53 At the request of: JUAN MARKER Procedure: XR shoulder LT 1V EXAM: XR shoulder LT 1V HISTORY: post reduction COMPARISON: 03/27/2023 at 10:00 PM TECHNIQUE: Single AP supine view. FINDINGS: Evidence of successful interval reduction of previously noted glenohumeral dislocation. Likely Hill-Sachs deformity of the left humeral head. The acromioclavicular joint is preserved. XR/XR shoulder LT 1V IMPRESSION: 1. Evidence of successful interval reduction of previously noted glenohumeral dislocation. 2. Likely Hill-Sachs deformity of the left humeral head. Electronically authenticated by: JOAN ZUNIGA Date: 03/27/2023 23:53
[2023-03-27] MEDS: KETAMINE HCL 500 MG/5 ML VIAL 100 MG IV (23:18)
[2023-03-28] MEDS: IBUPROFEN 600 MG TABLET PO (00:26)
== END 2023-03-28 00:45 | disposition home or self-care (01) ==
PROVIDERS: Emergency Provider Emergency Medicine; PCP Family Medicine
DX: M24.412 Recurrent dislocation, left shoulder (principal); Z79.899 Other long term (current) drug therapy
CPT/HCPCS: 12001; 23650; 73020; 73030; 96374; 96375; 99152; 99285

== ENCOUNTER 2023-03-29 05:45 | Emergency (ER) | payer SELFPAY ==
[2023-03-29 05:48] VITALS: BP 130/94; PULSE 74; RESP 16; TEMP 37.2; O2SAT 100; BMI 30.7
--- NOTE | 2023-03-29 05:50 | XR_ITS ---
The [address] [address] Patient Name: LISA HANEY MRN: [id number] date: 1995 Sex: M Assigned Patient Location: ER Current Patient Location: ED.MAIN Accession/Order Number: [id number] Exam Date: 03/29/2023 05:55 Report Date: 03/29/2023 06:26 At the request of: ALEX PARKS Procedure: XR shoulder LT min 2V EXAM: XR shoulder LT min 2V HISTORY: pain recent reduction of left shoulder dislocation yesterday. COMPARISON: Left shoulder x-rays, 03/27/2023. TECHNIQUE: 3 views of the left shoulder. FINDINGS: No acute or intrinsic osseous, articular or soft tissue abnormality is seen. XR/XR shoulder LT min 2V IMPRESSION: Unremarkable left shoulder, with anatomic left glenohumeral alignment. No acute fracture or other acute left shoulder findings. Electronically authenticated by: KAISER ROBERTS Date: 03/29/2023 06:26
--- NOTE | 2023-03-29 06:37 | ED_ITS ---
HPI - Extremity Injury (Upper) General Chief Complaint: Extremity Injury, Upper Stated Complaint: WORK INJURY BUT NOT FILLING BWC Time Seen by Provider: 03/29/23 06:37 Mode of arrival: walk-in History of Present Illness HPI narrative: patient states he dislocated his left shoulder at work. after he arrived to the ER he states it went back in place. no other complaint. He is now requesting documentation for his job that he was seen Related Data Home Medications Medication Instructions Recorded Confirmed lamotrigine 200 mg tablet 400 mg PO Q12H 11/18/22 03/07/23 (Lamictal) Allergies Allergy/AdvReac Type Severity Reaction Status Date / Time No Known Drug Allergies Allergy Verified 03/29/23 05:52 Review of Systems ROS Status of ROS 10 or more systems reviewed and unremarkable except as noted in history and below PFS PFS Social History Smoking status: Never smoker Exam Constitutional Vital Signs, click to edit/add: Last Vital Signs Temp 98.9 F 03/29/23 05:48 Pulse 74 03/29/23 05:48 Resp 16 03/29/23 05:48 BP 130/94 H 03/29/23 05:48 Pulse Ox 100 03/29/23 05:48 O2 Del Method Room Air 03/29/23 05:48 Common normals: no apparent distress, average body habitus, oriented x3 and no limitations Eye Common normals: PERRL and EOMs intact bilaterally Respiratory Common normals: normal respiratory effort, no retractions, no use of accessory muscles and clear to auscultation bilaterally Cardio Common normals: regular rate, regular rhythm, S1 normal heart sound and S2 normal heart sound Extremity Common normals: normal to inspection and full ROM Other: left shoulder exam normal Neuro Common normals: oriented x3, CN's II-XII intact bilaterally, moves all extre mities and no focal motor deficits Psych Appearance: grossly normal Course Vital Signs Vital signs: Vital Signs Temperature 98.9 F 03/29/23 05:48 Pulse Rate 74 03/29/23 05:48 Respiratory Rate 16 03/29/23 05:48 Blood Pressure 130/94 H 03/29/23 05:48 Pulse Oximetry 100 03/29/23 05:48 Oxygen Delivery Method Room Air 03/29/23 05:48 Temperature 98.9 F 03/29/23 05:48 Pulse Rate 74 03/29/23 05:48 Respiratory Rate 16 03/29/23 05:48 Blood Pressure 130/94 H 03/29/23 05:48 Pulse Oximetry 100 03/29/23 05:48 Oxygen Delivery Method Room Air 03/29/23 05:48 MDM - Extremity Injury (Upper) MDM Narrative Medical decision making narrative: past history of shoulder dislocations. States left shoulder dislocated tonight at work. left work and by the time he arrived here the shoulder reduced itself. Exam of the shoulder is neg. xray is also normal. patient seen recently in the ED for shoulder dislocation that required conscious sedation and reduction. this was the right shoulder. Patient provided with discharge instructions for his job that he was here for left shoulder dislocation. Discharge Plan Discharge Chief Complaint: Extremity Injury, Upper Clinical Impression: Closed dislocation of left shoulder Patient Disposition: Home, Self-Care Prescriptions / Home Meds: No Action lamotrigine [Lamictal] 200 mg tablet 400 mg PO Q12H Instructions: Shoulder Dislocation (ED) Stand Alone Forms: Portal Instructions Referrals: JESSE SMILEY [Primary Care Provider] - 1 week
== END 2023-03-29 06:46 | disposition home or self-care (01) ==
PROVIDERS: Emergency Provider Internal Medicine; PCP Family Medicine
DX: S43.005A Unspecified dislocation of left shoulder joint, initial encounter (principal); Z79.899 Other long term (current) drug therapy
CPT/HCPCS: 73030; 99283

== ENCOUNTER 2023-04-17 10:05 | Emergency (ER) | payer SELFPAY ==
[2023-04-17 10:10] VITALS: BP 138/94; PULSE 56; RESP 20; TEMP 36.8; O2SAT 97; BMI 30.7
--- NOTE | 2023-04-17 10:30 | ED.GENADUL1 ---
HPI - General Adult General Chief complaint: Abdominal Pain Stated complaint: FLANK PAIN Time Seen by Provider: 04/17/23 10:10 Source: patient Mode of arrival: walk-in Limitations: no limitations History of Present Illness HPI narrative: 27-year-old male presents for right flank pain and vomiting. He believes he's passing a kidney stone. He's had them previously. He had a little bit of pain in his flank last night and then it was worse and hour ago. He's been vomiting. No fever or gross hematuria or dysuria. The pain is severe and continuous. Related Data Home Medications Medication Instructions Recorded Confirmed lamotrigine 200 mg tablet 400 mg PO Q12H 11/18/22 03/07/23 (Lamictal) Previous Rx's Medication Instructions Recorded cephalexin 500 mg capsule 500 mg PO TID 7 days #21 caps 04/17/23 ondansetron 4 mg disintegrating 4 mg PO Q6H PRN nausea and 04/17/23 tablet vomiting #20 tabs oxycodone-acetaminophen 5 mg-325 1 tab PO Q6H PRN pain 5 days #20 04/17/23 mg tablet (Percocet) tabs tamsulosin 0.4 mg capsule (Flomax) 0.4 mg PO DAILY #7 caps 04/17/23 Allergies Allergy/AdvReac Type Severity Reaction Status Date / Time No Known Drug Allergies Allergy Verified 03/29/23 05:52 Review of Systems ROS Narrative A ten point review of systems is negative except as noted above. PFSH PFSH Social History Smoking status: Never smoker Exam Narrative Exam Narrative: Nurses note and vital signs reviewed and patient is not hypoxic. General: The patient appears well and in no apparent distress. Patient is resting comfortably on cart. Skin: Warm, pallor noted. There is no rash noted. Head: Normocephalic, atraumatic Eye: Normal conjunctiva, no drainage Ears, Nose, Mouth, and Throat: oral mucosa is moist. Nares patent. Cardiovascular: Regular Rate and Rhythm Respiratory: Patient is in no distress, no accessory muscle use, lungs are clear to auscultation, no wheezing, rales or rhonchi Back: non-tender, no CVA tenderness bilaterally to percussion. GI: nontender, nondistended Musculoskeletal: The patient has no evidence of calf tenderness, no pitting edema, symmetrical pulses noted bilaterally Neurological: A&O, normal speech Psychiatric: Cooperative Constitutional Vital Signs, click to edit/add: Last Vital Signs Temp 98.3 F 04/17/23 10:10 Pulse 50 L 04/17/23 12:13 Resp 16 04/17/23 12:13 BP 125/88 04/17/23 12:13 Pulse Ox 94 L 04/17/23 12:13 O2 Del Method Room Air 04/17/23 11:46 Course Vital Signs Vital signs: Vital Signs Temperature 98.3 F 04/17/23 10:10 Pulse Rate 56 L 04/17/23 10:10 Respiratory Rate 20 04/17/23 10:10 Blood Pressure 138/94 H 04/17/23 10:10 Pulse Oximetry 97 04/17/23 10:10 Oxygen Delivery Method Room Air 04/17/23 10:10 Temperature 98.3 F 04/17/23 10:10 Pulse Rate 50 L 04/17/23 12:13 Respiratory Rate 16 04/17/23 12:13 Blood Pressure 125/88 04/17/23 12:13 Pulse Oximetry 94 L 04/17/23 12:13 Oxygen Delivery Method Room Air 04/17/23 11:46 Medical Decision Making MDM Narrative Medical decision making narrative: 3 mm right ureteral stone is identified. He is feeling improved and is able to be discharged home. Treatment diagnosis and follow-up were discussed with the patient. Lab Data Lab results reviewed: Yes I reviewed the patient's lab results Labs: Lab Results 04/17/23 Range/Units 10:27 WBC 14.7 H (4.0-11.0) 10^3/uL RBC 5.37 (4.70-6.10) 10^6/uL Hgb 16.2 (14.0-18.0) g/dL Hct 46.0 (42.0-54.0) % MCV 85.7 (80.0-94.0) fL MCH 30.2 (25.9-34.0) pg MCHC 35.2 (29.9-35.2) g/dL RDW 12.1 (11.0-15.0) % Plt Count 289 (150-450) 10^3/uL MPV 10.6 (9.5-13.5) fL Neut % (Auto) 49.7 (43.0-75.0) % Lymph % (Auto) 33.5 (20.5-60.0) % [place] % (Auto) 10.2 (1.7-12.0) % Eos % (Auto) 5.2 (0.9-7.0) % Baso % (Auto) 1.1 (0.2-2.0) % Neut # (Auto) 7.3 H (1.4-6.5) 10^3/uL Lymph # (Auto) 4.9 H (1.2-3.8) 10^3/uL [place] # (Auto) 1.5 H (0.3-0.8) 10^3/uL Eos # (Auto) 0.8 H (0.0-0.7) 10^3/uL Baso # (Auto) 0.2 H (0.0-0.1) 10^3/uL Abs Immat Gran (auto) 0.04 H (0.00-0.03) 10^3/uL Imm/Tot Granulo (auto) 0.3 (0.0-0.5) % Sodium 142 (136-145) mmol/L Potassium 3.4 L (3.5-5.1) mmol/L Chloride 104 (98-107) mmol/L Carbon Dioxide 24.1 (21.0-32.0) mmol/L Anion Gap 17.3 BUN 13.0 (7.0-18.0) mg/dL Creatinine 1.12 (0.70-1.30) mg/dL Est GFR ( Amer) >60 (>=60) Est GFR (Non-Af Amer) >60 (>=60) BUN/Creatinine Ratio 11.6 Glucose 110 H (74-106) mg/dL Calcium 8.5 (8.5-10.1) mg/dL Imaging Data CT scan - abdomen: Radiologist's impression: Procedure: CT abdomen pelvis wo con CT abdomen pelvis wo con, 04/17/2023 10:43 AM EST INDICATION: Right flank pain, r/o stone COMPARISON: Noncontrast CT scan of the abdomen and pelvis 03/08/2023 TECHNIQUE: Axial images of the abdomen and pelvis were obtained without IV contrast. Multiplanar reformatted images were generated and reviewed as needed. Dose reduction techniques were achieved by using automated exposure control and/or adjustment of mA and/or kV according to patient size and/or use of iterative reconstruction technique. FINDINGS: No consolidation or effusion. Focal fatty deposition adjacent to the falciform ligament. The gallbladder, pancreas, spleen and adrenals are unremarkable on a non contrast scan. Small nonobstructing left renal calculi. Previously identified right renal calculi are no longer identified. Bilateral cortical renal cysts. Right renal cortical cyst with thin focus of dependent wall calcification within the upper pole the right kidney. 3 mm right ureteral calculus at the level of the inferior endplate L2 vertebral body with mild collecting system dilatation proximally. No urinary bladder calculi or perivesicular fat stranding. Prostate gland and seminal vesicles unremarkable. No aortic aneurysm. No bowel obstruction or acute focal inflammation. Normal appendix. No pneumatosis, pneumoperitoneum or ascites. No mesenteric or retroperitoneal lymphadenopathy. No acute fracture or dislocation. IMPRESSION: 1. 3 mm proximal right ureteral calculus with mild right hydroureteronephrosis. 2. Nonobstructing left nephrolithiasis. 3. Bilateral Bosniak 1 simple cortical cysts and benign Bosniak 2 cortical cyst upper pole the right kidney. Electronically authenticated by: ANGELICA VAZQUEZ Date: 04/17/2023 11:24 Discharge Plan Discharge Chief Complaint: Abdominal Pain Clinical Impression: Kidney stone Patient Disposition: Home, Self-Care Time of Disposition Decision: 12:50 Condition: Good Mode of Transportation: Private Vehicle Prescriptions / Home Meds: New oxycodone-acetaminophen [Percocet] 5-325 mg tablet 1 tab PO Q6H PRN (Reason: pain) 5 Days Qty: 20 0RF cephalexin 500 mg capsule 500 mg PO TID 7 Days Qty: 21 0RF ondansetron 4 mg tablet,disintegrating 4 mg PO Q6H PRN (Reason: nausea and vomiting) Qty: 20 0RF tamsulosin [Flomax] 0.4 mg capsule 0.4 mg PO DAILY Qty: 7 0RF No Action lamotrigine [Lamictal] 200 mg tablet 400 mg PO Q12H Instructions: Kidney Stones (ED) Additional Instructions: follow up with Dr. Mccarty Stand Alone Forms: Portal Instructions Referrals: JESSE SMILEY [Primary Care Provider] - 1 week
[2023-04-17 10:34] LABS: Basophils Absolute Auto 0.2 10^3/uL (0.0-0.1); Basophils Percent Auto 1.1 % (0.2-2.0); Eosinophils Absolute Auto 0.8 10^3/uL (0.0-0.7); Eosinophils Percent Auto 5.2 % (0.9-7.0); Hemoglobin 16.2 g/dL (14.0-18.0); Immature Granulocytes Abs Auto 0.04 10^3/uL (0.00-0.03); Immature Granulocytes Pct Auto 0.3 % (0.0-0.5); Lymphocytes Absolute Auto 4.9 10^3/uL (1.2-3.8); Lymphocytes Percent Auto 33.5 % (20.5-60.0); Mean Corpuscular HGB Conc 35.2 g/dL (29.9-35.2); Mean Corpuscular Hemoglobin 30.2 pg (25.9-34.0); Mean Corpuscular Volume 85.7 fL (80.0-94.0); Mean Platelet Volume 10.6 fL (9.5-13.5); Monocytes Absolute Auto 1.5 10^3/uL (0.3-0.8); Monocytes Percent Auto 10.2 % (1.7-12.0); Neutrophils Absolute Auto 7.3 10^3/uL (1.4-6.5); Neutrophils Percent Auto 49.7 % (43.0-75.0); Platelet Count 289 10^3/uL (150-450); Red Blood Count 5.37 10^6/uL (4.70-6.10); Red Cell Distribution Width 12.1 % (11.0-15.0); White Blood Count 14.7 10^3/uL (4.0-11.0)
[2023-04-17] MEDS: KETOROLAC TROMETHAMINE 30 MG/ML VIAL IVP (10:38)
[2023-04-17] MEDS: 0.9 % SODIUM CHLORIDE 1,000 ML 1000 ML IV (10:38)
[2023-04-17] MEDS: ONDANSETRON PF 4 MG/2 ML VIAL IV ×2 (10:38→11:42)
[2023-04-17 10:44] LABS: Anion Gap 17.3; BUN Creatinine Ratio 11.6; Calcium 8.5 mg/dL (8.5-10.1); Carbon Dioxide 24.1 mmol/L (21.0-32.0); Chloride 104 mmol/L (98-107); Estimated GFR (African America >60 (>=60); Estimated GFR (Non-African Ame >60 (>=60); Glucose 110 mg/dL (74-106); Potassium 3.4 mmol/L (3.5-5.1); Sodium 142 mmol/L (136-145)
--- NOTE | 2023-04-17 10:49 | PC.NURSE ---
Patient is refusing to even try to urinate for me. I have told him several times we need to get sample to continue care for him . urinal at bedside.
[2023-04-17] MEDS: MORPHINE SULFATE 4 MG/ML VIAL IV (11:42)
[2023-04-17 11:46] VITALS: BP 134/87; PULSE 54; RESP 18; O2SAT 95
[2023-04-17 12:13] VITALS: BP 125/88; PULSE 50; RESP 16; O2SAT 94
== END 2023-04-17 13:02 | disposition home or self-care (01) ==
PROVIDERS: Emergency Provider Emergency Medicine; PCP Family Medicine
DX: N13.2 Hydronephrosis with renal and ureteral calculous obstruction (principal)
CPT/HCPCS: 36415; 74176; 80048; 81001; 85025; 96361; 96374; 96375; 96376; 99285

== ENCOUNTER 2023-04-18 08:28 | Emergency (ER) | payer SELFPAY ==
[2023-04-18 08:42] VITALS: BP 128/85; PULSE 78; RESP 16; TEMP 36.5; O2SAT 98; BMI 30.7
--- NOTE | 2023-04-18 08:47 | XR_ITS ---
The [address] [address] Patient Name: LISA HANEY MRN: [id number] date: 1995 Sex: M Assigned Patient Location: ED.MAIN Current Patient Location: Accession/Order Number: [id number] Exam Date: 04/18/2023 09:30 Report Date: 04/18/2023 10:35 At the request of: ADOLPH KUNZ Procedure: XR shoulder LT min 2V EXAM: XR shoulder LT min 2V HISTORY: poss dislocation COMPARISON: 03/29/2023 TECHNIQUE: 2 views of the left shoulder. FINDINGS: Bones: No acute or aggressive appearing bony lesion. Joints: Normal alignment. No effusion. No significant degenerative findings. Soft tissues: Unremarkable. XR/XR shoulder LT min 2V IMPRESSION: Unremarkable examination. No evidence of fracture. Electronically authenticated by: NIMESH NAZARIO Date: 04/18/2023 10:35
--- NOTE | 2023-04-18 08:52 | ED.UPPEXIN1 ---
HPI - Extremity Injury (Upper) General Chief Complaint: Extremity Injury, Upper Stated Complaint: UPPER EXTREMITY INJURY LEFT SHOULDER Time Seen by Provider: 04/18/23 08:34 Source: patient Mode of arrival: walk-in Limitations: no limitations History of Present Illness HPI narrative: 0.9-year-old male presents for left shoulder pain. He states he rolled over in bed today and his shoulder popped out. He has a history of recurrent bilateral shoulder locations. He sees an orthopedist and he states that the orthopedist will do surgery on her shoulder until he hasn't had a seizure for six months. No other injury was sustained. This happened just before coming into the emergency department. Related Data Home Medications Medication Instructions Recorded Confirmed lamotrigine 200 mg tablet 400 mg PO Q12H 11/18/22 03/07/23 (Lamictal) Previous Rx's Medication Instructions Recorded cephalexin 500 mg capsule 500 mg PO TID 7 days #21 caps 04/17/23 ondansetron 4 mg disintegrating 4 mg PO Q6H PRN nausea and 04/17/23 tablet vomiting #20 tabs oxycodone-acetaminophen 5 mg-325 1 tab PO Q6H PRN pain 5 days #20 04/17/23 mg tablet (Percocet) tabs tamsulosin 0.4 mg capsule (Flomax) 0.4 mg PO DAILY #7 caps 04/17/23 Allergies Allergy/AdvReac Type Severity Reaction Status Date / Time No Known Drug Allergies Allergy Verified 04/18/23 08:42 Review of Systems ROS Narrative A ten point review of systems is negative except as noted above. PFSH PFSH Social History Smoking status: Never smoker Exam Narrative Exam Narrative: Nurses note and vital signs reviewed and patient is not hypoxic. General: The patient appears well and in no apparent distress. Patient is resting comfortably on cart. Skin: Warm, dry, no pallor noted. There is no rash noted. Head: Normocephalic, atraumatic Eye: Normal conjunctiva, no drainage Ears, Nose, Mouth, and Throat: oral mucosa is moist. Nares patent. Cardiovascular: Regular Rate and Rhythm Respiratory: Patient is in no distress, no accessory muscle use, lungs are clear to auscultation, no wheezing, rales or rhonchi Back: non-tender, no CVA tenderness bilaterally to percussion. GI: soft and nontender Musculoskeletal: deformity noted at the left shoulder. Radial pulse 2+. Neurological: A&O, normal speech Psychiatric: Cooperative Constitutional Vital Signs, click to edit/add: Last Vital Signs Temp 97.7 F 04/18/23 08:42 Pulse 78 04/18/23 08:42 Resp 16 04/18/23 08:42 BP 128/85 04/18/23 08:42 Pulse Ox 98 04/18/23 08:42 O2 Del Method Room Air 04/18/23 08:42 Course Vital Signs Vital signs: Vital Signs Temperature 97.7 F 04/18/23 08:42 Pulse Rate 78 04/18/23 08:42 Respiratory Rate 16 04/18/23 08:42 Blood Pressure 128/85 04/18/23 08:42 Pulse Oximetry 98 04/18/23 08:42 Oxygen Delivery Method Room Air 04/18/23 08:42 Temperature 97.7 F 04/18/23 08:42 Pulse Rate 78 04/18/23 08:42 Respiratory Rate 16 04/18/23 08:42 Blood Pressure 128/85 04/18/23 08:42 Pulse Oximetry 98 04/18/23 08:42 Oxygen Delivery Method Room Air 04/18/23 08:42 MDM - Extremity Injury (Upper) MDM Narrative Medical decision making narrative: my clinical impressions that upon arrival he had left shoulder dislocation. While the x-rays were being performed his shoulder reduced spontaneously. Sling and swath applied and application checked by me and found be appropriate, he is neurovascularly intact. He'll follow up probably with his orthopedist. on exam there is no deformity and he feels much better. Differential Diagnosis Differential diagnosis: Likely other (shoulder strain, dislocation) Imaging Data left shoulder: My impression: to x-rays were taken. On the 1st one my clinical impression is that it's dislocated. On the 2nd it is reduced. Discharge Plan Discharge Chief Complaint: Extremity Injury, Upper Clinical Impression: Dislocation of shoulder, left, closed Patient Disposition: Home, Self-Care Time of Disposition Decision: 09:38 Condition: Good Mode of Transportation: Private Vehicle Prescriptions / Home Meds: No Action lamotrigine [Lamictal] 200 mg tablet 400 mg PO Q12H oxycodone-acetaminophen [Percocet] 5-325 mg tablet 1 tab PO Q6H PRN (Reason: pain) 5 Days Qty: 20 0RF cephalexin 500 mg capsule 500 mg PO TID 7 Days Qty: 21 0RF ondansetron 4 mg tablet,disintegrating 4 mg PO Q6H PRN (Reason: nausea and vomiting) Qty: 20 0RF tamsulosin [Flomax] 0.4 mg capsule 0.4 mg PO DAILY Qty: 7 0RF Instructions: Shoulder Dislocation (ED) Additional Instructions: Call your orthopedist tomorrow Stand Alone Forms: Portal Instructions Referrals: JESSE SMILEY [Primary Care Provider] - 1 week
[2023-04-18] MEDS: OXYCODONE HCL/ACETAMINOPHEN 5MG/325MG 1 TAB PO (09:54)
== END 2023-04-18 09:59 | disposition home or self-care (01) ==
PROVIDERS: Emergency Provider Emergency Medicine; PCP Family Medicine
DX: M24.412 Recurrent dislocation, left shoulder (principal); Z79.899 Other long term (current) drug therapy
CPT/HCPCS: 73030; 99283

== ENCOUNTER 2024-07-16 11:41 | Emergency (ER) | payer OTHER, SELFPAY ==
[2024-07-16 11:44] VITALS: BP 139/82; PULSE 83; TEMP 37; O2SAT 98; BMI 28.6
[2024-07-16 14:17] VITALS: PULSE 87; O2SAT 100
--- NOTE | 2024-07-16 15:23 | ED_ITS ---
HPI HPI - General Adult General Chief complaint: Extremity Injury, Lower Stated complaint: R KNEE PAIN Time Seen by Provider: 07/16/24 11:46 Source: patient Mode of arrival: walk-in History of Present Illness HPI narrative: Patient presents to the emergency department with pain and swelling of the right knee. He states while at work yesterday he became upset and stomped his right foot forcefully over some equipment. He has noticed pain and swelling of the knee with painful ambulation. He denies any injury. Patient's past history significant for recurrent shoulder dislocation and he has had surgery for this in both shoulders. Related Data Home Medications ?Medication ?Instructions ?Recorded ?Confirmed lamotrigine 200 mg tablet 400 mg PO Q12H 11/18/22 07/16/24 (Lamictal) amoxicillin 875 mg tablet 875 mg PO BID 07/16/24 07/16/24 prednisone 10 mg tablet 10 mg PO TID 07/16/24 07/16/24 Previous Rx's ?Medication ?Instructions ?Recorded ondansetron 4 mg disintegrating 4 mg PO Q6H PRN nausea and 04/17/23 tablet vomiting #20 tabs Allergies Allergy/AdvReac Type Severity Reaction Status Date / Time No Known Drug Allergies Allergy Verified 04/18/23 08:42 Opioid HPI Opioid Management Most Recent Opioid Data: Last Pain Scale 7 07/16/24 11:56 07/16/24 Review of Systems ROS Narrative All other systems are reviewed and are negative other than what is mentioned in the HPI. PFSH PFSH Social History Smoking status: Never smoker Little interest or pleasure in doing things: not at all Feeling down, depressed, or hopeless: not at all Exam Narrative Exam Narrative: Focused physical examination is carried out. Patient's vitals are stable. He has a moderate effusion of the right knee with intact range of motion and no obvious instability. The left knee is atraumatic. Neurovascular function is intact distally. Constitutional Vital Signs, click to edit/add: Last Vital Signs Temp 98.6 F 07/16/24 11:44 Pulse 87 07/16/24 14:17 Resp 18 07/16/24 14:17 BP 139/82 07/16/24 11:44 Pulse Ox 100 07/16/24 14:17 O2 Del Method Room Air 07/16/24 14:17 Course Vital Signs Vital signs: Vital Signs Temperature 98.6 F 07/16/24 11:44 Pulse Rate 83 07/16/24 11:44 Respiratory Rate 16 07/16/24 11:44 Blood Pressure 139/82 07/16/24 11:44 Pulse Oximetry 98 07/16/24 11:44 Oxygen Delivery Method Room Air 07/16/24 11:44 Temperature 98.6 F 07/16/24 11:44 Pulse Rate 87 07/16/24 14:17 Respiratory Rate 18 07/16/24 14:17 Blood Pressure 139/82 07/16/24 11:44 Pulse Oximetry 100 07/16/24 14:17 Oxygen Delivery Method Room Air 07/16/24 14:17 Medical Decision Making MDM Narrative Medical decision making narrative: Patient presents with injury to the right knee. He does not have any fracture but he does have effusion likely due to soft tissue injury. Knee immobilizer is applied for compression and comfort and he is referred to outpatient orthopedics follow-up. Elevation and ice are advised and he may take ibuprofen for pain as needed. Discharge Plan Discharge Chief Complaint: Extremity Injury, Lower Clinical Impression: Internal derangement of right knee Patient Disposition: Home, Self-Care Time of Disposition Decision: 14:03 Condition: Good Mode of Transportation: Private Vehicle Prescriptions / Home Meds: No Action lamotrigine [Lamictal] 200 mg tablet 400 mg PO Q12H amoxicillin 875 mg tablet 875 mg PO BID prednisone 10 mg tablet 10 mg PO TID ondansetron 4 mg tablet,disintegrating 4 mg PO Q6H PRN (Reason: nausea and vomiting) Qty: 20 0RF Print Language: Citizen Of [place] Instructions: Knee Sprain (ED), Knee Immobilizer (ED) Additional Instructions: Ibuprofen 400 mg every 6 hours for pain as needed. Elevation. Ice. Follow-up with orthopedist as soon as possible. Return for worsening symptoms. Referrals: JESSE SMILEY [Primary Care Provider] - 1 week Cheikh Waldrop MD [Physician] - As soon as possible Discharge Date/Time: 07/16/24 14:20
== END 2024-07-16 14:20 | disposition home or self-care (01) ==
PROVIDERS: Emergency Provider Emergency Medicine; PCP Family Medicine
DX: M23.91 Unspecified internal derangement of right knee (principal)
CPT/HCPCS: 73564; 99283